=== PATIENT | female | born 2000 | race Caucasian/White ===

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

== ENCOUNTER 2021-01-16 16:47 | Emergency (ER) | payer OTHER ==
[~2021-01-16] VITALS: Ht 165.1 cm; Wt 93.0 kg
[~2021-01-16 16:47] MED LIST changes: +AUGMENTIN 875-1 EACH PO; +MEDROLDOSEPACK PO
[2021-01-16 17:15] LABS: ABSOLUTE BASOPHILS 0.1 thou/uL (0.0-0.2); ABSOLUTE EOSINOPHILS 0.2 thou/uL (0.0-0.7); ABSOLUTE LYMPHOCYTES 2.7 thou/uL (0.8-5.3); ABSOLUTE MONOCYTES 0.7 thou/uL (0.0-1.2); ABSOLUTE NEUTROPHILS 6.7 thou/uL (1.6-8.1); BASOPHILS 0.9 %; EOSINOPHILS 1.9 %; HEMOGLOBIN 13.7 gm/dL (12.0-15.0); LYMPHOCYTES 26.1 %; MCHC 34.4 g/dL (28.0-37.0); MCV 84.4 fL (80.0-100.0); MONOCYTES 7.1 %; MPV 7.1 fl. (7.2-11.1); NUCLEATED RBCS 0 /100WBC; PLATELET COUNT* 363 thou/uL (150-400); RBC 4.74 mil/uL (4.20-5.00); RDW-CV 13.7 % (10.5-14.5); WBC 10.5 thou/uL (4.0-11.0)
[2021-01-16 17:29] LABS: CREATININE 0.8 mg/dL (0.6-1.3); POTASSIUM 3.9 mmol/L (3.5-5.1)
[2021-01-16 18:19] VITALS: BP 120/72
--- NOTE | 2021-01-17 10:34 | EKG ---
[place] [address] ELECTROCARDIOGRAM REPORT Name: SHAYNE OROZCO Room: [facility]#: [id number] Admission: 01/16/21 Attend Phys: Discharge: 01/16/21 Date of : [birth year] Date of Service: 01/16/211651 Report #: [id number] THIS REPORT FOR: //name// [facility] ED Test Date: 2021-01-16 Test Time: 16:52:20 Pat Name: SHAYNE OROZCO Department: Room: Gender: F Poem Writer: : 2000 Requested By: Steve Rose Order Number: [id number] MD: Jake Garcia Measurements Intervals [place] Rate: 91 P: 40 NV: 158 QRS: 62 QRSD: 90 T: 31 QT: 356 QTc: 439 Interpretive Statements Sinus rhythm Compared to ECG 08/08/2017 17:59:08 T-wave abnormality no longer present Electronically Signed On 01-17-2021 10:34:30 [employer]SE [employer]ENDER by Jake Garcia [email or web address] <ELECTRONICALLY SIGNED> By: Jake Garcia MD, FAC 01/17/21 1034 1652 165 Jake Garcia MD, [facility] /EPI
== END 2021-01-16 18:20 | disposition home or self-care (01) ==
LOC: M.ERS 16:47
PROVIDERS: Physician Assistant
DX: R07.89 Other chest pain (principal); F41.9 Anxiety disorder, unspecified; Z79.899 Other long term (current) drug therapy; Z77.22 Contact with and (suspected) exposure to environmental tobacco smoke (acute) (chronic)